=== PATIENT | male | born 1945 | race Caucasian/White ===

== ENCOUNTER 2022-01-21 09:49 | Day surgery (SDC) | payer MEDICARE, BC ==
[~2022-01-21] VITALS: Ht 182.9 cm; Wt 110.2 kg
[~2022-01-21 09:49] MED LIST: AMLO-257 PO; ASPI-1450 PO; ATOR40TA28 PO; CLOP75TA60 PO; FURO40TA5 PO; GABA-1181 PO; METO25XL PO; SACU1TAB7 PO; SODIUM CHLORIDE 0.9% 1,000 ML ONE; TAMS-13 PO
[2022-01-21] MEDS ORDERED: SODIUM CHLORIDE 0.9% 1,000 ML IV ONE (10:00)
[2022-01-21] MEDS ORDERED: DIAZEPAM 5 MG TABLET ONE (10:34)
[2022-01-21] MEDS ORDERED: ASPIRIN 81 MG CHEWABLE TABLET ONE (10:35)
[2022-01-21] MEDS ORDERED: DiphenhydrAMINE HCL 50 MG CAPSULE ONE (10:35)
[2022-01-21 10:58] LABS: BASOPHILS % (AUTO) 0.6 % (0.0-2.0); EOSINOPHILS % (AUTO) 1.7 % (1.0-6.0); HEMATOCRIT 42.1 % (41-53); HEMOGLOBIN 13.9 g/dL (13.5-17.5); LYMPHOCYTES # (AUTO) 1.2 K/uL (1.0-4.8); LYMPHOCYTES % (AUTO) 17.9 % (22.0-44.0); MEAN CORPUSCULAR HEMOGLOBIN 30.3 pg (26.0-34.0); MEAN CORPUSCULAR HGB CONC 33.1 G/dL (31.0-37.0); MEAN CORPUSCULAR VOLUME 92 fL (80-100); MONOCYTES # (AUTO) 0.9 K/uL (0.1-1.0); MONOCYTES % (AUTO) 13.3 % (2.0-9.0); NEUTROPHILS # (AUTO) 4.4 K/uL (1.8-7.7); NEUTROPHILS % (AUTO) 66.5 % (40.0-70.0); PLATELET COUNT (AUTO) 274 K/uL (150-450); RED CELL DISTRIBUTION WIDTH 15.1 % (11.5-14.5)
[2022-01-21 11:02] LABS: COVID AG,FIA SOURCE NASOPHARYNGEAL
[2022-01-21 11:05] LABS: ANION GAP 11 mmol/L (8-16); CALCIUM, TOTAL 9.4 mg/dL (8.8-10.5); CARBON DIOXIDE 27 mmol/L (22-29); CHLORIDE 99 mmol/L (98-107); CREATININE 0.68 mg/dL (0.60-1.30); GLUCOSE,RANDOM 129 mg/dL (70-110); POTASSIUM 3.8 mmol/L (3.5-5.1); SODIUM SERUM 137 mmol/L (136-145); UREA NITROGEN, BLOOD 14 mg/dL (7-18)
[2022-01-21 11:06] LABS: GLOMERULAR FILTR. RATE CALC > 60 mL/min (>60)
[2022-01-21 11:09] LABS: PROTHROMBIN TIME 10.8 SEC (9.4-11.6)
[2022-01-21] MEDS ORDERED: LIDOCAINE/PF 1% 30 ML VIAL ONE (11:23)
[2022-01-21] MEDS ORDERED: IOHEXOL 300 MG/ML 100 ML VIAL ONE ×4 (11:24→14:07)
[2022-01-21] MEDS ORDERED: SODIUM BICARBONATE 50 MEQ/50 ML VIAL ONE (11:24)
[2022-01-21] MEDS ORDERED: HEPARIN SODIUM 1000 UNITS/NS 1,000 ML ONE (11:24)
[2022-01-21] MEDS ORDERED: DIAZEPAM 5 MG TABLET PO ONE (12:00)
[2022-01-21] MEDS ORDERED: ASPIRIN 81 MG CHEWABLE TABLET PO ONE (12:00)
[2022-01-21] MEDS ORDERED: DiphenhydrAMINE HCL 50 MG CAPSULE PO ONE (12:00)
[2022-01-21 12:08] VITALS: BP 157/86
[2022-01-21] MEDS ORDERED: MIDAZOLAM HCL 2 MG/2 ML VIAL ONE ×2 (12:19→13:11)
[2022-01-21] MEDS ORDERED: FentaNYL CITRATE PF 100 MCG/2 ML VIAL ONE ×2 (12:19→13:10)
[2022-01-21] MEDS ORDERED: VERAPAMIL HCL 2.5 MG/ML 2 ML VIAL ONE (12:27)
[2022-01-21] MEDS ORDERED: FentaNYL CITRATE PF 100 MCG/2 ML VIAL IVP ONE ×4 (12:45→13:45)
[2022-01-21] MEDS ORDERED: LIDOCAINE 1% 30 ML/SOD BICARB 8.4% 4 ML SQ ONE (12:45)
[2022-01-21] MEDS ORDERED: HEPARIN SODIUM 1000 UNITS/NS 1,000 ML IARTER ONE (12:45)
[2022-01-21] MEDS ORDERED: HEPARIN SODIUM,PORCINE 1,000 UNITS/ML 10 ML VIAL IARTER ONE (12:45)
[2022-01-21] MEDS ORDERED: IOHEXOL 300 MG/ML 100 ML VIAL IARTER ONE ×2 (12:45→13:30)
[2022-01-21] MEDS ORDERED: MIDAZOLAM HCL 2 MG/2 ML VIAL IVP ONE ×2 (12:45→13:00)
[2022-01-21] MEDS ORDERED: NITROGLYCERIN/D5W 50 MG/250 ML IV BOTTLE IARTER ONE (12:45)
[2022-01-21] MEDS ORDERED: HEPARIN SODIUM,PORCINE 1,000 UNITS/ML 10 ML VIAL IVP ONE ×2 (12:45→13:00)
[2022-01-21] MEDS ORDERED: HEPARIN SODIUM 1000 UNITS/NS 500 ML ONE (13:17)
[2022-01-21] MEDS ORDERED: TICAGRELOR 90 MG TABLET ONE ×2 (14:03→17:55)
[2022-01-21 14:14] VITALS: BP 160/74
[2022-01-21] MEDS ORDERED: TICAGRELOR 90 MG TABLET PO ONE ×2 (14:15→17:30)
== END 2022-01-21 18:25 | disposition home or self-care (01) ==
LOC: CATHLAB 09:49
PROVIDERS: ATTEND Internal Medicine Interventional Cardiology
DX: I25.10 Atherosclerotic heart disease of native coronary artery without angina pectoris (principal); I10 Essential (primary) hypertension; I35.0 Nonrheumatic aortic (valve) stenosis; Z20.822 Contact with and (suspected) exposure to COVID-19; Z79.899 Other long term (current) drug therapy; Z98.890 Other specified postprocedural states
CPT/HCPCS: 80048; 85025; 85610; 85730; 36415; 99152; 99153; 93005; 92978; 87426; C9600; C1757; C1887 ×2; C1874; J3010; J1644; J3490 ×2; J2250; J7030; C1753; C9803; Q9967; 75960; 92920; 92928; Z7610